=== PATIENT | male | born 1960 | race Caucasian/White ===

== ENCOUNTER 2024-05-30 09:57 | Outpatient (CLI) | payer OTHER, SELFPAY ==
--- NOTE | 2024-05-30 10:00 | XR_ITS ---
FINAL REPORT CLINICAL HISTORY: lt hip pain, nki COMPARISON: None FINDINGS: AP and frog leg views of the left hip were obtained, along with an AP view of the pelvis. There is no acute fracture or dislocation. Degenerative joint disease is noted bilaterally in the hips, with chondrocalcinosis. Soft tissues are unremarkable. IMPRESSION: No acute osseous abnormality of the left hip. Reviewed, Interpreted and Dictated by Jessica Oneill MD Transcribed by Rosalva Sotelo Authenticated and [facility]
== END 2024-05-30 23:59 | disposition home or self-care (01) ==
LOC: RAD 09:58
PROVIDERS: PCP Family Medicine; Visit Provider Physician Assistant
DX: M25.552 Pain in left hip (principal)
CPT/HCPCS: 73502

== ENCOUNTER 2024-10-15 09:40 | Outpatient (CLI) | payer OTHER, SELFPAY ==
--- NOTE | 2024-10-15 09:41 | XR_ITS ---
FINAL REPORT CLINICAL HISTORY: right hip pain FINDINGS: An AP view of the pelvis and a frog leg view of the right hip were obtained. There is no acute fracture or dislocation. There is degenerative joint disease bilaterally of the hips with chondrocalcinosis. Remaining osseous pelvis is without acute abnormality. There is an unusual linear abnormality which appears in the left pelvis on the AP view of the pelvis and on isolated views of the right hip is visualized in 2 separate locations. Findings are likely related to some sort of artifact associated with the equipment or artifact on the patient. Foreign body is felt much less likely given changes of location. IMPRESSION: No acute osseous abnormality of the right hip. Unusual linear density, likely artifact as above. Reviewed, Interpreted and Dictated by Jessica Oneill MD Transcribed by Alberta Groves Authenticated and [facility]
--- OUTSIDE RECORDS SUMMARY | 2024-10-15 09:46 | XMS_ITS | Encounter Summary ---
Author Organization [facility] Address [address] [place] [address] Care Team Providers Care Summer Child Caregiver Name Role Phone Unavailable Primary Care Provider Unavailabl e Prior Encounters Date Type Department Care Team Description 01/21/2023 7:30 AM MST Office Visit [facility] [address], [address] [place] [address] Jag Wong, MAYTE 01/21/2023 7:30 AM MST Office Visit [facility] [address], [address] [place] [address] Noris Templeton [facility] 07/16/2022 9:30 AM MST Office Visit [facility] [address], [address] [place] [address] Jag Wong, MAYTE 07/16/2022 9:30 AM MST Office Visit [facility] [address], [address] [place] [address] Noris Templeton [facility] 01/08/2022 9:30 AM MST Office Visit [facility] [address], [address] [place] [address] Jag Wong, MAYTE 01/08/2022 9:30 AM MST Office Visit [facility] [address], [address] [place] [address] Noris Templeton [facility] 07/03/2021 12:00 PM MST Office Visit [facility] [address], [address] [place] [address] Jag Wong DMD 06/19/2021 Travel 06/19/2021 7:30 AM MST Office Visit [facility] [address], [address] [place] [phone] Jag Wong, DMD 06/19/2021 7:30 AM MST Office Visit [facility] [address], [address] [place] [phone] Ivana Rendon, [facility] 12/15/2020 10:30 AM MST Office Visit [facility] [address], [address] [place] [phone] Jag Wong, DMD 12/15/2020 9:45 AM MST Office Visit [facility] [address], [address] [place] [address] Nella Walker, [facility] 02/26/2019 Converted CPS Chart Documents [facility] [address], [facility] [address] [place] [address] <No scans attached> 02/26/2019 Converted CPS Chart Documents [facility] [address], [address] [place] [phone] <No scans attached> 02/26/2019 Converted CPS Chart Documents [facility] [address], [address] [place] [address] <No scans attached> 02/26/2019 Converted 13x Documents [facility] [address], [address] [place] [address] <No scans attached> 02/26/2019 Converted 13x Documents [facility] [address], [address] [place] [address] <No scans attached> 02/26/2019 Converted 13x Documents [facility] [address], [address] [place] [address] <No scans attached> Last Filed Vital Signs Vital Sign Reading Time Taken Comments Blood Pressure 122/74 01/21/2023 7:33 AM MST Pulse 59 01/21/2023 7:33 AM MST Temperature - - Respiratory Rate - - Oxygen Saturation - - Inhaled Oxygen Concentration - - Weight - - Height - - Body Mass Index - - Plan of Treatment Not on file Procedures Procedure Name Priority Date/Time Associated Diagnosis Comments TOPICAL APPLICATION OF FLUORIDE VARNISH Routine 01/21/2023 7:30 AM MST ORAL HYGIENE INSTRUCTIONS Routine 2022 7:30 AM MST PROPHYLAXIS - ADULT Routine 01/21/2023 7 :30 AM MST BITEWINGS - FOUR RADIOGRAPHIC IMAGES Routine 01/21/2023 7:30 AM MST INTRAORAL PHOTO Routine 01/21/2023 7:30 AM MST INTRAORAL PHOTO Routine 01/21/2023 7:30 AM MST PERIODIC ORAL EVALUATION - ESTABLISHED PATIENT Routine 01/21/2023 7:30 AM MST PLAN VISIT FEE Routine 01/21/2023 7:30 AM MST INTRAORAL PHOTO Routine 01/21/2023 7:30 AM MST INTRAORAL PHOTO Routine 01/21/2023 7:30 AM MST ORAL HYGIENE INSTRUCTIONS Routine 2022 9:30 AM MST TOPICAL APPLICATION OF FLUORIDE VARNISH Routine 07/16/2022 9:30 AM MST PROPHYLAXIS - ADULT Routine 07/16/2022 9:30 AM MST PLAN VISIT FEE Routine 07/16/2022 9:30 AM MST INTRAORAL PHOTO Routine 07/16/2022 9:30 AM MST INTRAORAL PHOTO Routine 07/16/2022 9:30 AM MST INTRAORAL PHOTO Routine 07/16/2022 9:30 AM MST INTRAORAL PHOTO Routine 07/16/2022 9:30 AM MST BITEWINGS - FOUR RADIOGRAPHIC IMAGES Routine 07/16/2022 9:30 AM MST PERIODIC ORAL EVALUATION - ESTABLISHED PATIENT Routine 07/16/2022 9:30 AM MST ORAL HYGIENE INSTRUCTIONS Routine 2021 9:30 AM MST TOPICAL APPLICATION OF FLUORIDE VARNISH Routine 01/08/2022 9:30 AM MST PROPHYLAXIS - ADULT Routine 01/08/2022 9 :30 AM MST PLAN VISIT FEE Routine 01/08/2022 9:30 AM MST INTRAORAL PHOTO Routine 01/08/2022 9:30 AM MST INTRAORAL PHOTO Routine 01/08/2022 9:30 AM MST PERIODIC ORAL EVALUATION - ESTABLISHED PATIENT Routine 01/08/2022 9:30 AM MST INTRAORAL PHOTO Routine 01/08/2022 9:30 AM MST BITEWINGS - FOUR RADIOGRAPHIC IMAGES Routine 01/08/2022 9:30 AM MST INTRAORAL PHOTO Routine 01/08/2022 9:30 AM MST 18 RECEMENT CROWN Routine 07/03/2021 12: 00 PM MST INTRAORAL PHOTO Routine 07/03/2021 12:00 PM MST INTRAORAL PHOTO Routine 07/03/2021 12:00 PM MST LIMITED ORAL EVALUATION - PROBLEM FOCUSED Routine 07/03/2021 12:00 PM MST BITEWING - SINGLE RADIOGRAPHIC IMAGE Routine 07/03/2021 12:00 PM MST INTRAORAL PHOTO Routine 06/19/2021 7:30 AM MST INTRAORAL PHOTO Routine 06/19/2021 7:30 AM MST INTRAORAL PHOTO Routine 06/19/2021 7:30 AM MST INTRAORAL PHOTO Routine 06/19/2021 7:30 AM MST BITEWINGS - FOUR RADIOGRAPHIC IMAGES Routine 06/19/2021 7:30 AM MST PERIODIC ORAL EVALUATION - ESTABLISHED PATIENT Routine 06/19/2021 7:30 AM MST PLAN VISIT FEE Routine 06/19/2021 7:30 AM MST ORAL HYGIENE INSTRUCTIONS Routine 2021 7:30 AM MST TOPICAL APPLICATION OF FLUORIDE VARNISH Routine 06/19/2021 7:30 AM MST PROPHYLAXIS - ADULT Routine 06/19/2021 7 :30 AM MST INTRAORAL PHOTO Routine 12/15/2020 10:30 AM MST INTRAORAL PHOTO Routine 12/15/2020 10:30 AM MST INTRAORAL PHOTO Routine 12/15/2020 10:30 AM MST INTRAORAL PHOTO Routine 12/15/2020 10:30 AM MST BITEWINGS - FOUR RADIOGRAPHIC IMAGES Routine 12/15/2020 10:30 AM MST PERIODIC ORAL EVALUATION - ESTABLISHED PATIENT Routine 12/15/2020 10:30 AM MST PLAN VISIT FEE Routine 12/15/2020 9:45 AM MST ORAL HYGIENE INSTRUCTIONS Routine 2020 9:45 AM MST TOPICAL APPLICATION OF FLUORIDE VARNISH Routine 12/15/2020 9:45 AM MST PROPHYLAXIS - ADULT Routine 12/15/2020 9 :45 AM MST PERIODIC ORAL EVALUATION - ESTABLISHED PATIENT Routine 06/11/2020 12:00 AM MST ORAL HYGIENE INSTRUCTIONS Routine 2020 12:00 AM MST TOPICAL APPLICATION OF FLUORIDE VARNISH Routine 06/11/2020 12:00 AM MST PROPHYLAXIS - ADULT Routine 06/11/2020 1 2:00 AM MST BITEWINGS - FOUR RADIOGRAPHIC IMAGES Routine 06/11/2020 12:00 AM MST INTRAORAL PHOTO Routine 06/11/2020 12:00 AM MST INTRAORAL PHOTO Routine 06/11/2020 12:00 AM MST INTRAORAL PHOTO Routine 06/11/2020 12:00 AM MST INTRAORAL PHOTO Routine 06/11/2020 12:00 AM MST MISSED APPOINTMENT Routine 05/19/2020 12 :00 AM MST CANCELLED APPOINTMENT Routine 04/07/2020 1:00 AM MST OFFICE VISIT FOR OBSERVATION (DURING REGULARLY SCHEDULED HOURS) - NO OTHER SERVICES PERFORMED Routine 01/09/2020 1:00 AM MST PERIODIC ORAL EVALUATION - ESTABLISHED PATIENT Routine 10/03/2019 12:00 AM MST ORAL HYGIENE INSTRUCTIONS Routine 2019 12:00 AM MST TOPICAL APPLICATION OF FLUORIDE VARNISH Routine 10/03/2019 12:00 AM MST PROPHYLAXIS - ADULT Routine 10/03/2019 1 2:00 AM MST BITEWINGS - FOUR RADIOGRAPHIC IMAGES Routine 10/03/2019 12:00 AM MST INTRAORAL PHOTO Routine 10/03/2019 12:00 AM MST INTRAORAL PHOTO Routine 10/03/2019 12:00 AM MST INTRAORAL PHOTO Routine 10/03/2019 12:00 AM MST INTRAORAL PHOTO Routine 10/03/2019 12:00 AM MST 3 CORE BUILDUP, INCLUDING ANY PINS WHEN REQUIRED Routine 06/23/2019 12:00 AM MST 3 CEMENT CROWN Routine 06/23/2019 12:00 AM MST 3 CEREC PROF CRN CRTSY Routine 0 12:00 AM MST ADDITIONAL X-RAY Routine 06/23/2019 12:0 0 AM MST SINGLE X-RAY Routine 06/23/2019 12:00 AM MST INTRAORAL PHOTO Routine 06/23/2019 12:00 AM MST INTRAORAL PHOTO Routine 06/23/2019 12:00 AM MST CANCELLED APPOINTMENT Routine 06/11/2019 12:00 AM MST ADDITIONAL X-RAY Routine 05/24/2019 12:0 0 AM MST SINGLE X-RAY Routine 05/24/2019 12:00 AM MST INTRAORAL PHOTO Routine 05/24/2019 12:00 AM MST 14 MO APICOECTOMY - MOLAR (FIRST ROOT) Routine 05/23/2019 12:00 AM MST OFFICE VISIT FOR OBSERVATION (DURING REGULARLY SCHEDULED HOURS) - NO OTHER SERVICES PERFORMED Routine 05/16/2019 12:00 AM MST 14 ENDODONTIC THERAPY, MOLAR TOOTH (EXCLUDING FINAL ORTHODOXY) Routine 05/07/2019 12:00 AM MST LIMITED ORAL EVALUATION - PROBLEM FOCUSED Routine 04/27/2019 12:00 AM MST 14 TREATMENT OF ROOT CANAL OBSTRUCTION; NON-SURGICAL ACCESS Routine 03/28/2019 1:00 AM MST LIMITED ORAL EVALUATION - PROBLEM FOCUSED Routine 03/28/2019 1:00 AM MST 14 ENDODONTIC THERAPY, MOLAR TOOTH (EXCLUDING FINAL ORTHODOXY) Routine 03/28/2019 1:00 AM MST 14 PULP VITALITY TESTS Routine 0 1:00 AM MST MISSED APPOINTMENT Routine 03/28/2019 1: 00 AM MST 14 O COMPOSITE FILLING Routine 0 1:00 AM MST LIMITED ORAL EVALUATION - PROBLEM FOCUSED Routine 03/15/2019 1:00 AM MST 14 CORE BUILDUP, INCLUDING ANY PINS WHEN REQUIRED Routine 02/10/2019 1:00 AM MST NC X-RAY Routine 02/10/2019 1:00 AM MST 14 CEMENT CROWN Routine 02/06/2019 1:00 AM MST OFFICE VISIT FOR OBSERVATION (DURING REGULARLY SCHEDULED HOURS) - NO OTHER SERVICES PERFORMED Routine 01/25/2019 1:00 AM MST 14 CROWN PORC POST Routine 01/11/2019 1: 00 AM MST PERIODIC ORAL EVALUATION - ESTABLISHED PATIENT Routine 12/14/2018 1:00 AM MST ORAL HYGIENE INSTRUCTIONS Routine 2018 1:00 AM MST TOPICAL APPLICATION OF FLUORIDE VARNISH Routine 12/14/2018 1:00 AM MST PROPHYLAXIS - ADULT Routine 12/14/2018 1 :00 AM MST 2 LO AMALGAM 2 SURFACE Routine 9 12:00 AM MST 20 O AMALGAM 1 SURFACE Routine 9 12:00 AM MST 15 O AMALGAM 1 SURFACE Routine 9 12:00 AM MST 14 O AMALGAM 1 SURFACE Routine 9 12:00 AM MST 30 CROWN PFM POST Routine 06/15/2018 12: 00 AM MST 18 CROWN PFM POST Routine 06/15/2018 12: 00 AM MST COMPREHENSIVE ORAL EVALUATION - NEW OR ESTABLISHED PATIENT Routine 06/15/2018 12:00 AM MST ORAL HYGIENE INSTRUCTIONS Routine 2018 12:00 AM MST TOPICAL APPLICATION OF FLUORIDE VARNISH Routine 06/15/2018 12:00 AM [facility] PROPHYLAXIS - ADULT Routine 06/15/2018 1 2:00 AM MST PANORAMIC RADIOGRAPHIC IMAGE Routine 06/15/2018 12:00 AM [facility] INTRAORAL - COMPREHENSIVE SERIES OF RADIOGRAPHIC IMAGES Routine 06/15/2018 12:00 AM MST INTRAORAL PHOTO Routine 06/15/2018 12:00 AM MST INTRAORAL PHOTO Routine 06/15/2018 12:00 AM MST INTRAORAL PHOTO Routine 06/15/2018 12:00 AM MST INTRAORAL PHOTO Routine 06/15/2018 12:00 AM [facility] 19 PREM COMPOSITE FILLING Routine 06/16/19 19 12:00 AM [facility] 5 DO COMPOSITE FILLING Routine 9 12:00 AM MST 31 O COMPOSITE FILLING Routine 9 12:00 AM [facility] 4 O COMPOSITE FILLING Routine 06/15/2018 12:00 AM [facility] 3 O COMPOSITE FILLING Routine 06/15/2018 12:00 AM [facility] Visit Diagnoses Not on file Insurance [facility]
--- OUTSIDE RECORDS SUMMARY | 2024-10-15 09:46 | XMS_ITS | Clinical Summary ---
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 1 Active triamcinolone (KENALOG) 0.1 % cream Apply to affected area of hands twice a day as needed. Avoid face and groin 1 Active zolpidem (AMBIEN) 10 mg tablet 1/2 to 1 tab at bedtime if needed only for sleep 1 Active fexofenadine (JOSE) 180 mg tablet Take 180 mg by mouth. 1 Active fluticasone propionate (FLONASE) 50 mcg/actuation nasal spray Administer into affected nostril(s). Active pravastatin (PRAVACHOL) 40 mg tablet Take 1 tablet by mouth 1 (one) time each day. 2 Active pravastatin (PRAVACHOL) 80 mg tablet Take 1 tablet by mouth 1 (one) time each day. 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 Overview (01/08/2022): cxr 01/2021 RT cxr 01/2021 RT Last Assessment & Plan: Incidental finding CXR 01/2021 Follow up CXR ordered Recent covid illness, mild with residual improved cough L,ungs clear with good pulse ox Allergic rhinitis 01/20/2021 Overview (01/08/2022): Last Assessment & Plan: Presenting with cough and postnasal drip for the last 3 weeks Had already completed a seven-day course of amoxicillin he had left over from prior prescription without improvement Lungs clear with good pulse ox Has been using Flonase consistently initially 3 weeks ago but now more on and off Restart on a daily basis along with oral antihistamine/Jose Chest x-ray ordered If symptoms do not improve or worsen over the next week notify us for further instructions Last Assessment & Plan: Now doing better after some increasing symptoms in the last 3 weeks leading to ETD symptoms to LT Recommend continuing Flonase and oral antihistamine until he returns from his upcoming travel Dermatitis, dyshidrotic 11/24/2020 Overview (01/08/2022): Last Assessment & Plan: Bilateral hands Moisturize skin and refill triamcinolone to use as [id number] risks of topical steroids discussed Last Assessment & Plan: Stable with topical steroid when needed Tinea versicolor 11/24/2020 Overview (12/15/2020): Last Assessment & Plan: Not very bothersome to patient but present in the last couple of years Trial of ketoconazole cream Vertigo 11/24/2020 HLD (hyperlipidemia) 07/10/2019 Overview (01/24/2023): Last Assessment & Plan: Recommend diet low in fat and high fiber with exercise most days of the week as tolerated Lipid panel ordered Last Assessment & Plan: Taking pravastatin without difficulties Follow-up lab work ordered Last Assessment & Plan: Taking pravastatin Labs ordered Follow low fat diet, exercise Prediabetes 07/10/2019 Overview (01/08/2022): Last Assessment & Plan: Continue lifestyle management, need for dietary changes and physical activity discussed A1c with labs ordered Last Assessment & Plan: Left thumb management A1c with labs Insomnia 07/10/2019 Overview (01/24/2023): Last Assessment & Plan: Takes zolpidem for sleep on/off for 3-4 yr per pt Takes on occasion only per pt Has trouble with sleep a couple days a week Has tried in past-Trazodone/did not help, melatonin not helpful Usually tries half tab first and if not helpful then takes the other half No side effects, not drowsy next day. No memory problems needs refill-last filled 06/17/20 #30 Refill entered Follow in 6 months Last Assessment & Plan: Takes zolpidem at night for years on occasion only Stable Last refill 10/2021 Last Assessment & Plan: Chronic Takes zolpidem at night prn only #30 tabs usually filled every 3-4 months Controlled med agreement signed today Groin pain, left 02/08/2019 Overview (12/15/2020): Last Assessment & Plan: This patient has some mild persistent groin discomfort and a sensation of fullness within the groin particularly when he bends or perform physical activity. The pain has not become severe and persistent and noticeable. The MRI which was recently performed does not show any evidence for recurrent herniation. There is some fatty tissue present in the bilateral inguinal canals. There is no obvious significant or severe inflammatory change. 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 There is some attenuation artifact from the fixation tags. Based on my interpretation of the MRI and its report as well as the patient's symptoms it may be that the patient is having discomfort secondary to the mesh and the fixation but it does not appear to be causing her neuropathic pain. I explained that sometimes the mesh can scar and shrink to some degree which can cause a sensation of fullness. I explained that the cord lipoma in the area may be causing an increased sensation of fullness. I explained options which would include ongoing observation over the next several months as scar tissue can remodel and revise itself over time. I explained that physical therapy and mild activity would be appropriate. I explained that if conservative measures are not successful that operation would include pain management therapy versus repeat operation. I like them to follow- up with me in about 4 months to be about 1 year's time from the operation. At this time no additional surgery is planned.. Social History Tobacco Use Types Packs/Day Years Used Date Smoking Tobacco: Never Cigarettes Smokeless Tobacco: Never Tobacco Cessation:Counseling Given: Not Answered Alcohol Use Standard Drinks/Week Comments Yes 3 (1 standard drink = 0.6 oz pur e alcohol) Sex and Gender Information Value Date Recorded Sex Assigned at Not on file Legal Sex Male 8:55 PM PDT Gender Identity Not on file Sexual Orientation Not on file Last Filed Vital Signs Vital Sign Reading Time Taken Comments Blood Pressure 122/74 01/21/2023 7:33 AM [facility] Pulse 59 01/21/2023 7:33 AM [facility] Temperature - - Respiratory Rate - - Oxygen Saturation - - Inhaled Oxygen Concentration - - Weight - - Height - - Body Mass Index - - Plan of Treatment Health Maintenance Due Date Last Done Comments Dental X-Ray: Full Mouth 10/04/2022 10/04/2019, 10/2018 Dental X-Ray: Panoramic 10/04/2022 10/04/2019, 06/15 Dental Oral Exam 07/24/2023 01/21/2023, 10/2022, 01/08/2022, Additional history exists Dental Prophylaxis 07/24/2023 01/21/2023, 0 07/16/2022, 01/08/2022, Additional history exists Dental X-Ray: Bitewings 07/24/2023 01/21/2023 Procedures Procedure Name Priority Date/Time Associated Diagnosis Comments PROPHYLAXIS - ADULT Routine 01/21/2023 7 :30 AM [facility] PERIODIC ORAL EVALUATION - ESTABLISHED PATIENT Routine 01/21/2023 7:30 AM [facility] PANORAMIC RADIOGRAPHIC IMAGE Routine 06/15/2018 12:00 AM MST INTRAORAL - COMPREHENSIVE SERIES OF RADIOGRAPHIC IMAGES Routine 06/15/2018 12:00 AM MST from Last 3 Months or Most Recently Relevant to Health Maintenance Insurance [facility]
== END 2024-10-15 23:59 | disposition home or self-care (01) ==
LOC: RAD 09:41
PROVIDERS: PCP Family Medicine; Visit Provider Physician Assistant Surgical
DX: M70.61 Trochanteric bursitis, right hip (principal); R93.6 Abnormal findings on diagnostic imaging of limbs
CPT/HCPCS: 73502

== ENCOUNTER 2025-01-17 15:12 | Outpatient (CLI) | payer OTHER, SELFPAY ==
--- NOTE | 2025-01-17 15:30 | MR_ITS ---
FINAL REPORT CLINICAL HISTORY: left hip pain X 1 YEAR, injections not helping COMPARISON: None FINDINGS: Multiplanar MR imaging of the left hip was performed without contrast. There is no evidence of fracture or dislocation. There is moderate joint space narrowing bilateral hips. Mild hypertrophic changes are noted at the acetabular margins. There is no evidence of avascular necrosis. No bony mass is identified. No labral tear is identified. No significant joint effusion is seen. There is mild abnormal signal at the insertion of the bilateral abductor tendons which may be related to mild tendinitis. The musculature is intact. There is a minimal left hip joint effusion. No soft tissue mass or cyst is identified. IMPRESSION: Insertional tendinitis of the abductor tendons bilaterally. Reviewed, Interpreted and Dictated by Chase Dockery MD Transcribed by Morena Aawn Authenticated and [facility]
== END 2025-01-17 23:59 | disposition home or self-care (01) ==
LOC: RAD 15:12
PROVIDERS: PCP Family Medicine; Visit Provider Physician Assistant Surgical
DX: M76.02 Gluteal tendinitis, left hip (principal); S76.012A Strain of muscle, fascia and tendon of left hip, initial encounter
CPT/HCPCS: 73721